=== PATIENT | female | born 1990 | race Caucasian/White ===

== ENCOUNTER 2019-07-26 03:38 | Inpatient (IN) | payer BC ==
[~2019-07-26 03:38] MED LIST: Bupivacaine 0.25% 10 ML SDV ONE; ePHEDrine Sulfate/0.9% NaCl/Pf 25 MG/5 ML SYRINGE IV ONE
[2019-07-26] MEDS ORDERED: Sodium Chloride 0.9% 10 ML Syringe FLUSH PRN (12:25)
[2019-07-26] MEDS ORDERED: Nalbuphine 10 MG/ML Syringe IVPUSH PRN (12:25)
--- NOTE | 2019-07-26 13:33 | PCM.PREANE ---
Preanesthetic Assessment - Anesthesia/Transfusion/Family Hx Anesthesia History: No Prior Anesthesia Transfusion History: No Prior Transfusion(s) - Review of Systems General: No Symptoms Pulmonary: No Symptoms Cardiovascular: No Symptoms Gastrointestinal: No Symptoms Neurological: No Symptoms Other: Reports: None - Physical Assessment Vital Signs: 126/90 91, SPO2 = 96% Height: 1.75 m Weight: 96.978 kg ASA Class: 2 Mental Status: Alert & Oriented x3 Airway Class: Mallampati = 2 Dentition: Reports: Normal Dentition Thyro-Mental Finger Breadths: 3 Mouth Opening Finger Breadths: 3 ROM/Head Extension: Full Lungs: Clear to Auscultation, Normal Respiratory Effort Cardiovascular: Regular Rate, Regular Rhythm - Lab Values: Laboratory Last Values WBC 8.62 K/mm3 (3.98-10.04) 07/26/19 12:45 RBC 4.05 M/mm3 (3.98-5.22) 07/26/19 12:45 Hgb 13.0 gm/dl (11.2-15.7) D 07/26/19 12:45 Hct 37.9 % (34.1-44.9) 07/26/19 12:45 MCV 93.6 fl (79.4-94.8) 07/26/19 12:45 MCH 32.1 pg (25.6-32.2) 07/26/19 12:45 MCHC 34.3 g/dl (32.2-35.5) 07/26/19 12:45 RDW Std Deviation 40.8 fL (36.4-46.3) 07/26/19 12:45 Plt Count 147 K/mm3 (182-369) L 07/26/19 12:45 MPV 12.4 fl (9.4-12.3) H 07/26/19 12:45 Neut % (Auto) 68.8 % (34.0-71.1) 07/26/19 12:45 Lymph % (Auto) 15.7 % (19.3-51.7) L 07/26/19 12:45 Mower % (Auto) 14.3 % (4.7-12.5) H 07/26/19 12:45 Eos % (Auto) 0.2 (0.7-5.8) L 07/26/19 12:45 Baso % (Auto) 0.3 % (0.1-1.2) 07/26/19 12:45 Neut # (Auto) 5.93 K/mm3 (1.56-6.13) 07/26/19 12:45 Lymph # (Auto) 1.35 K/mm3 (1.18-3.74) 07/26/19 12:45 Mower # (Auto) 1.23 K/mm3 (0.24-0.36) H 07/26/19 12:45 Eos # (Auto) 0.02 K/mm3 (0.04-0.36) L 07/26/19 12:45 Baso # (Auto) 0.03 K/mm3 (0.01-0.08) 07/26/19 12:45 - Allergies Allergies/Adverse Reactions: Allergies Allergy/AdvReac Type Severity Reaction Status Date / Time No Known Allergies Allergy Verified 07/26/19 12:30 - Acknowledgements Anesthesia Type Planned: Epidural Pt an Appropriate Candidate for the Planned Anesthesia: Yes Alternatives and Risks of Anesthesia Discussed w Pt/Guardian: Yes Pt/Guardian Understands and Agrees with Anesthesia Plan: Yes PreAnesthesia Questionnaire Hematologic History: Reports: Anemia - HOME MEDS Home Medications: Home Meds Ferrous Sulfate [Iron] 325 mg PO DAILY 07/26/19 [History] [id number]/Iron Fumarate/FA/DSS [ 19 Tablet] 1 each PO DAILY 07/26/19 [ History] - CURRENT (IN HOUSE) MEDS Current Meds: Current Medications Lactated Ringer's (Ringers, Lactated) 1,000 mls @ 100 mls/hr IV ASDIRECTED ERI Nalbuphine HCl (Nubain) 10 mg IVPUSH Q2H PRN PRN Reason: Pain Sodium Chloride (Saline Flush) 10 ml FLUSH ASDIRECTED PRN PRN Reason: Keep Vein Open
[2019-07-26] MEDS ORDERED: Bupivacaine/fentaNYL/NS 100 ML Bag EPIDUR PRN ×2 (13:38→18:30)
[2019-07-26] MEDS ORDERED: ePHEDrine 50 MG/ML SDV IVPUSH PRN ×2 (13:38→18:14)
[2019-07-26] MEDS ORDERED: diphenhydrAMINE 50 MG/ML SDV IVPUSH PRN ×2 (13:38→18:14)
[2019-07-26] MEDS ORDERED: fentaNYL 100 MCG/2 ML SDV EPIDUR PRN ×2 (13:38→18:14)
[2019-07-26] MEDS: Lactated Ringers 1,000 ML IV SCH ×3 (17:43→23:39)
[2019-07-26] MEDS ORDERED: Oxytocin/Lactated Ringers 10 UNIT/1,000 ML BAG IV SCH ×2 (19:45)
[2019-07-27] MEDS ORDERED: Lidocaine 1% 50 ML MDV ONE (03:52)
--- NOTE | 2019-07-27 04:23 | PCM.SN.2 ---
- Free Text/Narrative Note: Delivery note: Sagrario is a 29-year-old 1 now para 1001 white female admitted at 39-4/ 7 weeks gestational age on 07/26/2019 with an ELMER of 07/29/2019. She was admitted with spontaneous rupture membranes in early labor. She progressed in labor steadily throughout the course of the day and into the evening. She became completely dilated by approximately 0100 hrs. on 07/27/2019. She pushed for approximately 2-1/2 hours and at 0338 hrs. on 07/27/2019 she delivered a viable, armando, male with Apgars of 8 and 9, a weight of 4140 g (9 lbs. 2 oz.), a length of 22.2 inches, in a left occiput anterior position. There was noted a loose nuchal cord 1 which was reduced over the baby's head. The baby was placed on mom's abdomen and nose and mouth were bulb suctioned. Pitocin was increased to 500 mL her hour to facilitate increase in uterine tone and 2 less than the likelihood of bleeding. The cord was allowed to pulsate 2- 3 minutes and then was clamped 2 and cut by the baby's father Caleb. There were 3 vessels in the umbilical cord and the umbilical cord had a true knot. Baby's name is Patrick Ellis. The placenta delivered in a Nice presentation, appeared intact and complete and was discarded per patient desire. Patient had a bilateral sulcus laceration of the vagina and 2 small superficial lacerations-one on each of the labia minora. The bilateral sulcus laceration was repaired with running suture of 3-0 Monocryl and the 2 labial lacerations were repaired with interrupted sutures of 3-0 Monocryl. Lidocaine 1% proximally 6 mL was used for the labial lacerations. Patient tolerated the repair well. Estimated blood loss was 200 mL.Patient plans to breast-feed. Condition: Good
[2019-07-27] MEDS ORDERED: Witch Hazel Medicated Pads 40/Jar TOP PRN (04:45)
[2019-07-27] MEDS ORDERED: Benzocaine/Menthol 20%-0.5% Spray 56 GM Canister TOP PRN (04:45)
[2019-07-27] MEDS ORDERED: Docusate Sodium 100 MG Cap PO PRN (04:45)
[2019-07-27] MEDS ORDERED: Acetaminophen 325 MG Tab PO PRN (04:45)
--- NOTE | 2019-07-27 08:45 | PCM48HPAN ---
Post Anesthesia Note - EVALUATION WITHIN 48HRS OF ANESTHETIC Vital Signs in Normal Range: Yes Patient Participated in Evaluation: Yes Respiratory Function Stable: Yes Airway Patent: Yes Cardiovascular Function Stable: Yes Hydration Status Stable: Yes Pain Control Satisfactory: Yes Nausea and Vomiting Control Satisfactory: Yes Mental Status Recovered: Yes Vital Signs: Last Vital Signs Temp 99.0 F 07/27/19 06:06 Pulse 81 07/27/19 06:06 Resp 16 07/27/19 06:06 BP 143/74 H 07/27/19 06:06 Pulse Ox 94 L 07/27/19 06:06 - COMMENTS/OBSERVATIONS Free Text/Narrative:: Patient is on her day 1. Stated understanding about possible backaches following epidural anesthesia. Explanation given about importance of avoiding back straining. Denies any backache, headache or lightheadedness at this time. States still having minimal numbness in the perineal area. Comfortable now. Ambulating, no difficulty urinating.
[2019-07-27] MEDS: Prenatal Multivitamin with Calcium/Folic Acid/Iron Tab PO SCH (10:18)
[2019-07-27] MEDS: Ibuprofen 600 MG Tab PO PRN ×2 (10:18→18:26)
[2019-07-27] MEDS: Ferrous Sulfate 324 MG Tab.EC PO SCH (10:18)
[2019-07-28] MEDS: Ferrous Sulfate 324 MG Tab.EC PO SCH (06:01)
[2019-07-28] MEDS: Ibuprofen 600 MG Tab PO PRN ×2 (06:01→13:28)
--- NOTE | 2019-07-28 06:18 | PCM.DCSUM1 ---
Discharge Summary - Hospital Course Free Text/Narrative:: Sagrario is a 29-year-old 1 now para 1001 white female admitted at 39-4/ 7 weeks gestational age on 07/26/2019 with an ELMER of 07/29/2019. She was admitted with spontaneous rupture membranes in early labor. She progressed in labor steadily throughout the course of the day and into the evening. She became completely dilated by approximately 0100 hrs. on 07/27/2019. She pushed for approximately 2-1/2 hours and at 0338 hrs. on 07/27/2019 she delivered a viable, armando, male with Apgars of 8 and 9, a weight of 4140 g (9 lbs. 2 oz.), a length of 22.2 inches, in a left occiput anterior position. There was noted a loose nuchal cord 1 which was reduced over the baby's head. The baby was placed on mom's abdomen and nose and mouth were bulb suctioned. Pitocin was increased to 500 mL her hour to facilitate increase in uterine tone and 2 less than the likelihood of bleeding. The cord was allowed to pulsate 2- 3 minutes and then was clamped 2 and cut by the baby's father Caleb. There were 3 vessels in the umbilical cord and the umbilical cord had a true knot. Baby's name is Patrick Ellis. The placenta delivered in a Nice presentation, appeared intact and complete and was discarded per patient desire. Patient had a bilateral sulcus laceration of the vagina and 2 small superficial lacerations-one on each of the labia minora. The bilateral sulcus laceration was repaired with running suture of 3-0 Monocryl and the 2 labial lacerations were repaired with interrupted sutures of 3-0 Monocryl. Lidocaine 1% proximally 6 mL was used for the labial lacerations. Patient tolerated the repair well. Estimated blood loss was 200 mL.Patient plans to breast-feed. patient is doing well. Lochia is minimal. She is voiding well. Pain is under good control. She is ambulating well. She has had some difficulties with nursing but is managing okay. She is interested in going home today. Condition: Good - Discharge Data Discharge Date: 07/28/19 Discharge Disposition: Home, Self-Care 01 Condition: Good - Referral to Home Health Primary Care Physician: Geo Talley MD - Patient Instructions Diet: Regular Diet as Tolerated (Nursing diet with increased calories and calcium is recommended) Activity: As Tolerated (No intercourse or tampons until bleeding resolves) Driving: May Drive Today Showering/Bathing: May Shower (May take a bath) Notify Provider of: Fever, Increased Pain, Swelling and Redness, Nausea and/or Vomiting - Discharge Plan Home Medications: Home Meds Ferrous Sulfate [Iron] 325 mg PO DAILY 07/26/19 [History] Prenat 115/Iron Fum/Folic/Dss [ 19 Tablet] 1 each PO DAILY 07/26/19 [ History] Referrals: Geo Talley MD [Primary Care Provider] - (Patient to make a appointment for [facility] evaluation for 2 weeks .) - Discharge Summary/Plan Comment DC Time >30 min.: No Discharge Summary/Plan Comment: Discharge instructions: 1. Discharge home 2. Diet, activity and follow-up discussed with patient. Recommend nursing diet with increased calories and calcium. 3. Precautions given concern increased pain, bleeding, temperature, signs/ symptoms of DVT/PE. 4. Medications per home medication was printed, discussed with and given to the patient. 5. The patient is to call for an appointment for a [facility] evaluation-Dr. Talley-[facility] in 2 weeks. Diagnosis: Term -delivered Condition: Good - Patient Data Vitals - Most Recent: Last Vital Signs Temp 36.8 C 07/28/19 03:35 Pulse 75 07/28/19 03:35 Resp 16 07/28/19 03:35 BP 127/96 H 07/28/19 03:35 Pulse Ox 97 07/28/19 03:35 Weight - Most Recent: 96.978 kg I&O - Last 24 hours: Intake & Output 07/27/19 07/27/19 07/28/19 14:59 22:59 06:59 Intake Total 120 0 Balance 120 0 Med Orders - Current: Current Medications Acetaminophen (Tylenol) 650 mg PO Q4H PRN PRN Reason: mild pain or fever Last Admin: 07/27/19 21:58 Dose: 650 mg Benzocaine/Menthol (Dermoplast Pain Relief [place]) 0 gm TOP ASDIRECTED PRN PRN Reason: Perineal Comfort Measure Last Admin: 07/27/19 05:45 Dose: 1 pad Docusate Sodium (Colace) 100 mg PO BID PRN PRN Reason: Constipation Last Admin: 07/27/19 10:18 Dose: 100 mg Ferrous Sulfate (Ferrous Sulfate) 324 mg PO WITHBREAKFAST [facility] Last Admin: 07/28/19 06:01 Dose: 324 mg Ibuprofen (Motrin) 600 mg PO Q4H PRN PRN Reason: Mild pain or fever Last Admin: 07/28/19 06:01 Dose: 600 mg Prenat Multivit/Harvest/Iron/Folic Ac ( Plus Iron) 1 each PO DAILY [facility] Last Admin: 07/27/19 10:18 Dose: 1 each Witch Ruthie (Tucks) 1 pad TOP ASDIRECTED PRN PRN Reason: Perineal Comfort Measure Last Admin: 07/27/19 05:44 Dose: 1 applic Discontinued Medications Bupivacaine HCl (Sensorcaine-Mpf 0.25%) 10 ml .ROUTE .STPremise-MED ONE Stop: 07/26/19 00:01 Diphenhydramine HCl (Benadryl) 25 mg IVPUSH Q6H PRN PRN Reason: pruritis Diphenhydramine HCl (Benadryl) 25 mg IVPUSH Q6H PRN PRN Reason: Itching Ephedrine Sulfate (Ephedrine Sulfate) 5 mg IVPUSH ASDIRECTED PRN PRN Reason: Hypotension Ephedrine Sulfate (Ephedrine Sulfate) 5 mg IVPUSH ASDIRECTED PRN PRN Reason: HYPOTENTSION Ephedrine Sulfate (Ephedrine 25 Mg/5 Ml Syringe) 25 mg IV .STK-MED ONE Stop: 07/26/19 00:01 Fentanyl (Sublimaze) 100 mcg EPIDUR Q3H PRN PRN Reason: Pain Last Admin: 07/26/19 18:20 Dose: 100 mcg Fentanyl (Sublimaze) 100 mcg EPIDUR Q3H PRN PRN Reason: Pain Fentanyl/Bupivacaine HCl (Fentanyl/Bupivacaine/Ns 2 Mcg-0.125% 100 Ml) 100 ml EPIDUR ASDIRECTED PRN PRN Reason: Pain Last Admin: 07/26/19 18:21 Dose: 100 ml Fentanyl/Bupivacaine HCl (Fentanyl/Bupivacaine/Ns 2 Mcg-0.125% 100 Ml) 100 ml EPIDUR CONTINUOUS PRN PRN Reason: Other Lactated Ringer's (Ringers, Lactated) 1,000 mls @ 100 mls/hr IV ASDIRECTED ERI Last Admin: 07/26/19 23:39 Dose: 100 mls/hr Oxytocin/Lactated Ringer's (Pitocin In Lr 10 Units/1,000 Ml) 10 unit in 1,000 mls @ 12 mls/hr IV TITRATE ERI; Protocol Last Titration: 07/27/19 04:40 Dose: Infused Oxytocin/Lactated Ringer's (Pitocin In Lr 10 Units/1,000 Ml) 10 unit in 1,000 mls @ 1,500 mls/hr IV TITRATE ERI; Protocol Lidocaine HCl (Xylocaine 1%) Confirm Administered Dose 50 ml .ROUTE .STK-MED ONE Stop: 07/27/19 03:53 Last Admin: 07/27/19 05:45 Dose: 50 ml Nalbuphine HCl (Nubain) 10 mg IVPUSH Q2H PRN PRN Reason: Pain Sodium Chloride (Saline Flush) 10 ml FLUSH ASDIRECTED PRN PRN Reason: Keep Vein Open
[2019-07-28] MEDS: Prenatal Multivitamin with Calcium/Folic Acid/Iron Tab PO SCH (08:05)
== END 2019-07-28 17:25 | disposition home or self-care (01) | DRG 542 ==
LOC: JD.OB 03:38 → OBSVTOIN 07-27 03:38
PROVIDERS: ADMIT Obstetrics & Gynecology; ATTEND Obstetrics & Gynecology
PROC: 10E0XZZ Delivery of Products of Conception, External Approach (ICD-10-PCS; principal; 2019-07-27)
PROC: 0DQR0ZZ Repair Anal Sphincter, Open Approach (ICD-10-PCS; 2019-07-27)
PROC: 3E0R3BZ Introduction of Anesthetic Agent into Spinal Canal, Percutaneous Approach (ICD-10-PCS; 2019-07-27)
PROC: 00HU33Z Insertion of Infusion Device into Spinal Canal, Percutaneous Approach (ICD-10-PCS; 2019-07-27)
DX: O69.81X0 Labor and delivery complicated by cord around neck, without compression, not applicable or unspecified (principal); O71.4 Obstetric high vaginal laceration alone; Z3A.39 39 weeks gestation of pregnancy; Z37.0 Single live birth
CPT/HCPCS: 36415; 51702; 59025; 59409; 85025; 86592; A9270-GY; J0171; J2001; J2590; J3010; J3490; J7120

== ENCOUNTER 2022-08-23 01:43 | Inpatient (IN) | payer BC ==
[~2022-08-23 01:43] MED LIST changes: -ePHEDrine Sulfate/0.9% NaCl/Pf 25 MG/5 ML SYRINGE IV ONE
[2022-08-23] MEDS: Lactated Ringers 1,000 ML IV SCH ×4 (02:35→07:19)
[2022-08-23] MEDS ORDERED: Lidocaine 1% 50 ML MDV INJECT ONE (02:47)
[2022-08-23] MEDS ORDERED: Nalbuphine 10 MG/0.5 ML Syringe IVPUSH PRN (02:47)
[2022-08-23] MEDS ORDERED: Ondansetron 4 MG/2 ML SDV IVPUSH PRN (02:47)
[2022-08-23] MEDS ORDERED: Sodium Chloride 0.9% 10 ML Syringe FLUSH PRN (02:47)
[2022-08-23 02:55] LABS: BASOPHILS ABSOLUTE AUTO 0.01 K/mm3 (0.01-0.08); BASOPHILS PERCENT AUTO 0.1 % (0.1-1.2); EOSINOPHILS ABSOLUTE AUTO 0.04 K/mm3 (0.04-0.36); EOSINOPHILS PERCENT AUTO 0.5 (0.7-5.8); HEMATOCRIT 33.7 % (34.1-44.9); HEMOGLOBIN 11.4 gm/dl (11.2-15.7); IMMATURE GRAN ABSOLUTE AUTO 0.02 K/mm3 (0.00-0.10); IMMATURE GRAN PERCENT AUTO 0.3 % (<=1.0); LYMPHOCYTES ABSOLUTE AUTO 1.55 K/mm3 (1.18-3.74); LYMPHOCYTES PERCENT AUTO 20.2 % (19.3-51.7); MEAN CORPUSCULAR HEMOGLOBIN 31.9 pg (25.6-32.2); MEAN CORPUSCULAR HGB CONC 33.8 g/dl (32.2-35.5); MEAN CORPUSCULAR VOLUME 94.4 fl (79.4-94.8); MEAN PLATELET VOLUME 11.2 fl (9.4-12.3); MONOCYTES ABSOLUTE AUTO 1.23 K/mm3 (0.24-0.36); MONOCYTES PERCENT AUTO 16.1 % (4.7-12.5); NEUTROPHILS ABSOLUTE AUTO 4.81 K/mm3 (1.56-6.13); NEUTROPHILS PERCENT AUTO 62.8 % (34.0-71.1); PLATELET COUNT,PLT 149 K/mm3 (182-369); RED BLOOD CELL COUNT 3.57 M/mm3 (3.98-5.22); WHITE BLOOD CELL COUNT,WBC 7.66 K/mm3 (3.98-10.04)
[2022-08-23] MEDS ORDERED: Oxytocin/Lactated Ringers 10 UNIT/1,000 ML BAG IV SCH (03:00)
[2022-08-23] MEDS ORDERED: Bupivacaine/fentaNYL/NS 100 ML Bag EPIDUR PRN (03:41)
[2022-08-23] MEDS ORDERED: fentaNYL 100 MCG/2 ML SDV EPIDUR PRN (03:41)
[2022-08-23] MEDS ORDERED: ePHEDrine 50 MG/ML SDV IVPUSH PRN (03:41)
[2022-08-23] MEDS ORDERED: diphenhydrAMINE 50 MG/ML SDV IVPUSH PRN (03:41)
[2022-08-23] MEDS: Sodium Chloride 0.9% 10 ML Syringe FLUSH SCH ×2 (13:24→22:15)
[2022-08-23] MEDS ORDERED: Docusate Sodium 100 MG Cap PO PRN (13:53)
[2022-08-23] MEDS ORDERED: Acetaminophen 325 MG Tab PO PRN (13:53)
[2022-08-23] MEDS ORDERED: Witch Hazel Medicated Pads 40/Jar TOP PRN (13:53)
[2022-08-23] MEDS ORDERED: Benzocaine/Menthol 20%-0.5% Spray 78 GM Cannister TOP PRN (13:53)
[2022-08-23] MEDS: Ibuprofen 600 MG Tab PO PRN (20:48)
[2022-08-24] MEDS: Ibuprofen 600 MG Tab PO PRN (08:26)
[2022-08-24] MEDS ORDERED: Prenatal Multivitamin with Calcium/Folic Acid/Iron Tab PO SCH (09:00)
== END 2022-08-24 12:19 | disposition home or self-care (01) | DRG 560 ==
LOC: JD.OBCHECK 01:43 → JD.OB 01:45 → JD.OBCHECK 03:37 → OBSVTOIN 08:44 → JD.OB 08:45
PROVIDERS: ADMIT Obstetrics & Gynecology; ATTEND Obstetrics & Gynecology
PROC: 10E0XZZ Delivery of Products of Conception, External Approach (ICD-10-PCS; principal; 2022-08-23)
PROC: 3E0R3BZ Introduction of Anesthetic Agent into Spinal Canal, Percutaneous Approach (ICD-10-PCS; 2022-08-23)
PROC: 0UQMXZZ Repair Vulva, External Approach (ICD-10-PCS; 2022-08-23)
PROC: 00HU33Z Insertion of Infusion Device into Spinal Canal, Percutaneous Approach (ICD-10-PCS; 2022-08-23)
DX: O42.013 Preterm premature rupture of membranes, onset of labor within 24 hours of rupture, third trimester (principal); O36.63X0 Maternal care for excessive fetal growth, third trimester, not applicable or unspecified; O70.0 First degree perineal laceration during delivery; Z3A.36 36 weeks gestation of pregnancy; Z37.0 Single live birth
CPT/HCPCS: 36415; 51702; 59025; 59409; 85025; 86592; A9270-GY; J2300; J2590; J3010; J3490; J7120

== ENCOUNTER 2024-07-05 04:43 | Inpatient (IN) | payer BC ==
[2024-07-05] MEDS ORDERED: Ondansetron 4 MG/2 ML SDV IVPUSH PRN (04:52)
[2024-07-05] MEDS ORDERED: Nalbuphine 10 MG/1 ML Vial IVPUSH PRN (04:52)
[2024-07-05] MEDS ORDERED: Lidocaine 1% 50 ML MDV INJECT PRN (04:52)
[2024-07-05] MEDS: Lactated Ringers 1,000 ML IV SCH (05:15)
[2024-07-05] MEDS ORDERED: fentaNYL 100 MCG/2 ML SDV EPIDUR PRN (05:36)
[2024-07-05] MEDS ORDERED: ePHEDrine 50 MG/ML SDV IM PRN (05:36)
[2024-07-05] MEDS ORDERED: ePHEDrine 50 MG/ML SDV IVPUSH PRN (05:36)
[2024-07-05] MEDS ORDERED: Ropivacaine 200 MG in Premix Bag 1 BAG EPIDUR PRN (05:36)
[2024-07-05] MEDS ORDERED: diphenhydrAMINE 50 MG/ML SDV IVPUSH PRN (05:36)
[2024-07-05] MEDS ORDERED: Bupivacaine/fentaNYL/NS 100 ML Bag EPIDUR PRN (05:36)
[2024-07-05 05:42] LABS: BASOPHILS PERCENT AUTO 0.3 % (0.0-1.0); EOSINOPHILS PERCENT AUTO 0.3 % (0.0-6.0); HEMATOCRIT 36.6 % (37.0-47.0); HEMOGLOBIN 12.7 gm/dl (12.0-16.0); IMMATURE GRAN ABSOLUTE AUTO 0.06 K/mm3 (0.00-0.05); IMMATURE GRAN PERCENT AUTO 0.7 % (0.0-0.4); LYMPHOCYTES ABSOLUTE AUTO 2.1 K/mm3 (1.0-4.8); LYMPHOCYTES PERCENT AUTO 23.9 % (24.0-44.0); MEAN CORPUSCULAR HEMOGLOBIN 32.3 pg (28.0-32.0); MEAN CORPUSCULAR HGB CONC 34.7 g/dl (32.0-36.0); MEAN CORPUSCULAR VOLUME 93.1 fl (83.0-99.0); MEAN PLATELET VOLUME 11.4 fl (9.4-12.3); MONOCYTES ABSOLUTE AUTO 1.1 K/mm3 (0.0-0.8); MONOCYTES PERCENT AUTO 11.9 % (0.0-8.0); NEUTROPHILS ABSOLUTE AUTO 5.6 K/mm3 (1.8-7.7); NEUTROPHILS PERCENT AUTO 62.9 % (41.0-71.0); PLATELET COUNT,PLT 164 K/mm3 (150-400); RED BLOOD CELL COUNT 3.93 M/mm3 (4.10-5.30); WHITE BLOOD CELL COUNT,WBC 8.83 K/mm3 (3.9-11.3)
[2024-07-05] MEDS: Oxytocin/0.9 % Sodium Chloride 30 UNIT/500 ML BAG IV SCH (06:35)
[2024-07-05] MEDS ORDERED: Ropivacaine 0.2% PF 2 MG/ML 20 ML SDV ONE (07:00)
[2024-07-05] MEDS ORDERED: Bupivacaine 0.25% 10 ML SDV ONE (07:00)
[2024-07-05] MEDS ORDERED: Benzocaine/Menthol 20%-0.5% Spray 78 GM Cannister TOP PRN (07:57)
[2024-07-05] MEDS: Ibuprofen 600 MG Tab PO SCH ×2 (08:52→22:03)
[2024-07-05] MEDS: Docusate Sodium 100 MG Cap PO PRN (08:53)
[2024-07-05] MEDS: Witch Hazel Medicated Pads 40/Jar TOP PRN (15:41)
[2024-07-08] MEDS: Acetaminophen 325 MG Tab PO PRN (13:16)
== END 2024-07-08 19:55 | disposition home or self-care (01) | DRG 560 ==
LOC: JD.OBCHECK 04:43 → JD.OB 04:53 → JD.OBCHECK 05:13 → JD.OB 05:13 → OBSVTOIN 06:33 → JD.OB 06:34
PROVIDERS: ADMIT Obstetrics & Gynecology; ATTEND Obstetrics & Gynecology
PROC: 10E0XZZ Delivery of Products of Conception, External Approach (ICD-10-PCS; principal; 2024-07-05)
PROC: 0KQM0ZZ Repair Perineum Muscle, Open Approach (ICD-10-PCS; 2024-07-05)
PROC: 0UQMXZZ Repair Vulva, External Approach (ICD-10-PCS; 2024-07-05)
PROC: 3E0R3BZ Introduction of Anesthetic Agent into Spinal Canal, Percutaneous Approach (ICD-10-PCS; 2024-07-05)
PROC: 00HU33Z Insertion of Infusion Device into Spinal Canal, Percutaneous Approach (ICD-10-PCS; 2024-07-05)
DX: O42.02 Full-term premature rupture of membranes, onset of labor within 24 hours of rupture (principal); Z37.0 Single live birth; O99.345 Other mental disorders complicating the puerperium; F53.0 Postpartum depression; Z3A.38 38 weeks gestation of pregnancy
CPT/HCPCS: 01967; 36415; 51701; 59025; 59409; 85025; 86592; 86850; 86900; 86901; 99140; A9270-GY; J0665; J2795; J7120; J7999